=== PATIENT | male | born 1990 | race Caucasian/White ===

== ENCOUNTER 2017-08-06 12:55 | Emergency (ER) | payer OTHER ==
[2017-08-06 13:10] VITALS: BP 117/76; PULSE 75; TEMP 98.7; BMI 25.0
[2017-08-06] MEDS ORDERED: DIPHTH,PERTUSS(ACELL),TET 0.5 ML DISP.SYRIN IM ONE (13:11)
--- NOTE | 2017-08-06 13:11 | PDOC ---
History of Present Illness - General Chief Complaint: Injury Stated Complaint: LEFT INDEX FINGER LACERATION Time Seen by Provider: 08/06/17 13:04 History Source: Patient Exam Limitations: No Limitations - History of Present Illness Initial Comments: 08/06/17 13:05 27 y/o male injured left 2nd digit with a knife while cooking. Not up to date with Tetanus. Bleeding not controlled, used a rubber bacd to sop bleeding. No other complaint at this time. Timing/Duration: 1 hour Severity: mild Past History - Past Medical History Allergies/Adverse Reactions: Allergies Allergy/AdvReac Type Severity Reaction Status Date / Time No Known Allergies Allergy Verified 08/06/17 13:00 Home Medications: Ambulatory Orders NK [No Known Home Medication] 08/06/17 Review of Systems - Review of Systems Able to Perform ROS?: Yes Is the patient limited Lao proficient: No Constitutional: No: Chills, Fever Respiratory: No: Cough, Shortness of Breath Cardiac (ROS): No: Chest Pain Integumentary: No: Bruising Neurological: No: Headache All Other Systems: Reviewed and Negative *Physical Exam - Physical Exam General Appearance: Yes: Nourished, Appropriately Dressed. No: Apparent Distress HEENT: positive: EOMI, PRASHANT, Normal ENT Inspection Neck: positive: Supple Respiratory/Chest: positive: Lungs Clear, Normal Breath Sounds. negative: Chest Tender, Respiratory Distress Cardiovascular: positive: Regular Rhythm, Regular Rate, S1, S2. negative: Edema , JVD, Murmur Vascular Pulses: Femoral (R): 4+, Femoral (L): 4+, Carotid (R): 4+, Carotid (L) : 4+, Dorsalis-Pedis (R): 4+, Doralis-Pedis (L): 4+ Gastrointestinal/Abdominal: positive: Normal Bowel Sounds, Flat, Soft. negative : Tender, Organomegaly Lymphatic: negative: Adenopathy, Tenderness, Other Musculoskeletal: positive: Normal Inspection. negative: CVA Tenderness Extremity: positive: Normal Capillary Refill. 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 Procedure: 2nd left digit: 2 cc 1% Lidocaine injected into joint for digital block Finger tip cauterized, bleeding stopped Pt tolerated procedure well 08/06/17 13:41 X-ray finger: no fracture seen *DC/Admit/Observation/Transfer Diagnosis at time of Disposition: Laceration of finger of left hand Qualifiers: Encounter type: initial encounter Finger: index finger Damage to nail status: without damage Foreign body presence: without foreign body Qualified Code(s): S61.211A - Laceration without foreign body of left index finger without damage to nail, initial encounter - Discharge Dispostion Disposition: HOME Condition at time of disposition: Good Admit: No - Referrals - Patient Instructions Printed Discharge Instructions: DI for Laceration Repair -- Finger Additional Instructions: Ice, Motrin, rest Apply pressure if starts to bleed If worsen return to ER - Post Discharge Activity
[2017-08-06] MEDS ORDERED: IBUPROFEN 600 MG TABLET (FP) PO ONE ×2 (13:23→13:28)
== END 2017-08-06 13:51 | disposition home or self-care (01) ==
LOC: FER 12:55
PROC: 0HQGXZZ Repair Left Hand Skin, External Approach (ICD-10-PCS; principal; 2017-08-06)
PROC: 3E0234Z Introduction of Serum, Toxoid and Vaccine into Muscle, Percutaneous Approach (ICD-10-PCS; 2017-08-06)
DX: S61.211A Laceration without foreign body of left index finger without damage to nail, initial encounter (principal); W26.0XXA Contact with knife, initial encounter; Y93.G3 Activity, cooking and baking; Y92.9 Unspecified place or not applicable
CPT/HCPCS: 73140-TC-LT-FY; 90715; 99282-25